=== PATIENT | male | born 1995 | race Caucasian/White ===

== ENCOUNTER 2016-11-10 14:35 | Emergency (ER) | payer MEDICAID ==
[~2016-11-10] VITALS: Ht 167.6 cm; Wt 88.9 kg
[2016-11-10 14:39] VITALS: BP_SYST 135
--- NOTE | 2016-11-10 14:44 | NUR ---
Patient to ER bed 07 to gown for evaluation. Side rails up.
--- NOTE | 2016-11-10 14:48 | NUR ---
Note undone in [facility] - 11/10/16 at 1534 by ANAIS Patient in stable condition, states slipped on water at work and fell onto bottom, denies any neck/head injury, denies passing out. States now has left buttock pain inside cheek, no signs injury/wound noted, no swelling or discoloration. No deformities noted. No other complaints/injuries per patient or noted. Addendum: 11/10/16 at 1458 by ANAIS Amendment undone in [facility] - 11/10/16 at 1534 by ANAIS Patient states is also bleeding from anus when has bowel movement. Denies any nausea/vomiting/diarrhea/abdominal pain. Abdomen soft and non distended.
--- NOTE | 2016-11-10 15:07 | NUR ---
VISHNU Rosa at bedside examining patient
--- NOTE | 2016-11-10 15:10 | NUR ---
Pt brought in by in stable condition. Pt stated that he slipped and fell onto his buttocks 11/06 and no c/o perirectal pain 03/25. Pt present w/ abscess to left side of perirectal. Pt stated that he notices blood when he has bowel movements. -sob -chest pain. No acute distress noted at this time, will continue to monitor
[2016-11-10] MEDS ORDERED: CEFAZOLIN 1 GM IVPB PREMIX 50 ML IV ONE (15:30)
[2016-11-10] MEDS ORDERED: SODIUM BICARBONATE 8.4% VIAL 50 MEQ/50 ML VIAL INJ ONE (15:30)
[2016-11-10] MEDS ORDERED: fentaNYL CITRATE/PF 100 MCG/2 ML AMP IVP ONE (15:30)
[2016-11-10] MEDS ORDERED: LIDOCAINE/EPI 2% 1:100000 20 ML VIAL INJ ONE (15:30)
[2016-11-10] MEDS ORDERED: NACL 0.9% 1,000 ML IV ONE (15:30)
[2016-11-10] MEDS ORDERED: LIDOCAINE/PRILOCAINE 5 GM CREAM (EMLA) TP ONE (16:00)
[2016-11-10] MEDS ORDERED: ONDANSETRON HCL 4 MG/2 ML VIAL ONE (16:21)
[2016-11-10] MEDS ORDERED: ONDANSETRON HCL 4 MG/2 ML VIAL IVP ONE (16:45)
[2016-11-10] MEDS ORDERED: PROCHLORPERAZINE EDISYLATE 10 MG/2 ML VIAL IM ONE (17:00)
[2016-11-10 17:19] VITALS: BP_SYST 135
--- NOTE | 2016-11-10 17:19 | NUR ---
Patient given written and verbal discharge instructions and verbalizes understanding. ER [employer] Shelley discussed with patient the results and treatment provided. Patient in stable condition. ID arm band removed. IV catheter removed intact and dressing applied, no active bleeding. Rx of Bactrim, Docusate Sodium, Motrin 800, Keflex, and Tylenol w/ Codeine given. Patient educated on pain management and to follow up with PMD. Pain Scale 2/10. Opportunity for questions provided and answered.
== END 2016-11-10 17:19 | disposition home or self-care (01) ==
LOC: SED 14:35
DX: K61.1 Rectal abscess (principal); F17.200 Nicotine dependence, unspecified, uncomplicated; Z71.6 Tobacco abuse counseling
CPT/HCPCS: 46040; 96365; 96372; 96375; 99284; J0690; J0780; J2405; J3010

== ENCOUNTER 2016-11-12 14:17 | Emergency (ER) | payer MEDICAID ==
[~2016-11-12] VITALS: Ht 180.3 cm; Wt 89.8 kg
[2016-11-12 14:20] VITALS: BP 134/86; PULSE 89; RESP 19; TEMP 98.2; O2SAT 99
--- NOTE | 2016-11-12 14:20 | NUR ---
Patient triaged and placed in waiting room. VSS and patient appears in no acute distress at this time. Accompanied by SELF, awaiting available bed, and MD notified of need for MSE.
--- NOTE | 2016-11-12 15:40 | NUR ---
ER at bedside examining patient.
--- NOTE | 2016-11-12 15:41 | NUR ---
pt here for wound recheck,had left side buttck I & d yesterday.
--- NOTE | 2016-11-12 16:11 | NUR ---
abscess packing removed by Dr Velasquez,healing,no drainges
--- NOTE | 2016-11-12 16:12 | NUR ---
Patient given written and verbal discharge instructions and verbalizes understanding. ER MD discussed with patient the results and treatment provided. Patient in stable condition. ID arm band removed. Pain Scale []. Opportunity for questions provided and answered.
[2016-11-12 16:13] VITALS: BP 134/86; PULSE 89; RESP 19; TEMP 98.2; O2SAT 99
== END 2016-11-12 16:13 | disposition home or self-care (01) ==
LOC: SED 14:17
DX: K61.1 Rectal abscess (principal)
CPT/HCPCS: 99283